=== PATIENT | female | born 1980 | race Hispanic/Latino ===

== ENCOUNTER 2017-06-12 19:27 | Emergency (ER) | payer MEDICARE ==
[~2017-06-12 19:27] MED LIST: GABA-529 PO; TOPI50TA24 PO; TYL3 PO
[2017-07-23] MEDS ORDERED: PANT40TA25 PO (11:02)
[2017-07-23] MEDS ORDERED: DULO20 PO (11:02)
[2017-07-23] MEDS ORDERED: METO10TA3 PO (11:02)
== END 2017-06-12 19:36 | disposition left against medical advice (07) ==
LOC: EDH 19:27
DX: Z53.21 Procedure and treatment not carried out due to patient leaving prior to being seen by health care provider (principal)
CPT/HCPCS: 96372

== ENCOUNTER 2017-06-16 15:05 | Emergency (ER) | payer MEDICARE ==
[2017-06-16 17:43] LABS: BASOPHILS % (AUTO) 0.5 % (0.0-5.0); HEMATOCRIT 40.1 % (36-48); LYMPHOCYTES % (AUTO) 24.5 % (21.0-51.0); MEAN CORPUSCULAR HEMOGLOBIN 30.7 pg (27.0-33.0); MEAN CORPUSCULAR HGB CONC 34.1 g/dL (32.0-36.0); MONOCYTES % (AUTO) 4.3 % (3.0-13.0); NEUTROPHILS % (AUTO) 69.7 % (40.0-77.0); PLATELET COUNT (AUTO) 182 K/uL (130-400); RED BLOOD CELL COUNT(AUTO) 4.45 MIL/uL (4.00-5.50); RED CELL DISTRIBUTION WIDTH 12.8 % (11.0-15.5); WHITE BLOOD COUNT (AUTO) 9.9 K/uL (4.8-10.8)
[2017-06-16 17:45] LABS: APPEARANCE,URINE Cloudy (CLEAR); BILIRUBIN,URINE Negative (NEGATIVE); COLOR,URINE Yellow (YELLOW); GLUCOSE, URINE (UA) Negative (NEGATIVE); KETONES,URINE Negative (NEGATIVE); LEUKOCYTE ESTERASE ,URINE Negative (NEGATIVE); NITRATE,URINE Negative (NEGATIVE); OCCULT BLOOD,URINE Negative (NEGATIVE); PH,URINE 7.5 (5.0-8.0); PROTEIN,URINE Negative (NEGATIVE)
[2017-06-16 17:52] LABS: AMORPHOUS SEDIMENT,UR Few /LPF (None Seen); BACTERIA,URINE Few /HPF (None Seen); RBC,URINE None Seen /HPF (0-1); WBC,URINE None Seen /HPF (0-1)
[2017-06-16 18:00] LABS: CREATININE 0.9 mg/dL (0.5-1.5); POTASSIUM 3.7 mmol/L (3.5-5.1)
[2017-06-16 18:04] LABS: ALBUMIN 3.4 g/dL (3.5-5.0); BILIRUBIN,DIRECT 0.1 mg/dL (0.0-0.3); BILIRUBIN,TOTAL 0.4 mg/dL (0.2-1.0); TOTAL PROTEIN, SERUM 6.4 g/dL (6.0-8.3)
[2017-06-16] MEDS ORDERED: HYOSCYAMINE SULFATE 0.125 MG TAB.SUBL SL ONE (18:35)
[2017-07-23] MEDS ORDERED: PANT40TA25 PO (11:02)
[2017-07-23] MEDS ORDERED: DULO20 PO (11:02)
[2017-07-23] MEDS ORDERED: METO10TA3 PO (11:02)
== END 2017-06-16 19:08 | disposition home or self-care (01) ==
LOC: EDH 15:05
DX: T16.1XXA Foreign body in right ear, initial encounter (principal); R10.9 Unspecified abdominal pain; R10.2 Pelvic and perineal pain; M19.90 Unspecified osteoarthritis, unspecified site; Z98.51 Tubal ligation status; Z90.49 Acquired absence of other specified parts of digestive tract; Z90.710 Acquired absence of both cervix and uterus; Z98.890 Other specified postprocedural states; Z88.5 Allergy status to narcotic agent; Z72.0 Tobacco use; X58.XXXA Exposure to other specified factors, initial encounter; Y93.89 Activity, other specified; Y92.89 Other specified places as the place of occurrence of the external cause; Y99.8 Other external cause status
CPT/HCPCS: 36415; 80048; 80076; 81001; 83690; 85025; 86677

== ENCOUNTER 2017-07-26 06:46 | Day surgery (SDC) | payer MEDICARE ==
[~2017-07-26] VITALS: Ht 157.5 cm; Wt 78.9 kg
[~2017-07-26 06:46] MED LIST changes: +DULO20 PO; +METO10TA3 PO; +PANT40TA25 PO; +SODIUM CHLORIDE 0.9% 1000ML 1,000 ML IV ONE; -TYL3 PO
[2017-07-26 06:56] VITALS: BP 117/60
[2017-07-26] MEDS ORDERED: ONDANSETRON HCL MDV 20ML 2 MG/ML VIAL ONE (07:30)
[2017-07-26] MEDS ORDERED: PROPOFOL 10 MG/ML 20ML VIAL IV ONE (08:14)
[2017-07-26 08:37] VITALS: BP 87/40
== END 2017-07-26 08:52 ==
LOC: DAH 06:46
PROVIDERS: ATTEND Internal Medicine Gastroenterology
DX: K31.84 Gastroparesis (principal); R63.4 Abnormal weight loss; G43.909 Migraine, unspecified, not intractable, without status migrainosus; M19.90 Unspecified osteoarthritis, unspecified site; M51.26 Other intervertebral disc displacement, lumbar region; Z68.33 Body mass index [BMI] 33.0-33.9, adult; Z79.899 Other long term (current) drug therapy; F17.200 Nicotine dependence, unspecified, uncomplicated; Z88.8 Allergy status to other drugs, medicaments and biological substances
CPT/HCPCS: 43235; A4606; J2704; J7030

== ENCOUNTER → 2017-08-06 | Outpatient (CLI) | payer MEDICARE ==
[~2017-08-06] MED LIST changes: -GABA-529 PO; -SODIUM CHLORIDE 0.9% 1000ML 1,000 ML IV ONE
== END | disposition home or self-care (01) ==
LOC: RAH 09:57
PROVIDERS: ATTEND Internal Medicine Gastroenterology
DX: R10.9 Unspecified abdominal pain (principal); R11.0 Nausea; R14.0 Abdominal distension (gaseous)
CPT/HCPCS: 78264; A9541

== ENCOUNTER → 2017-08-16 | Outpatient (CLI) | payer MEDICARE | END | disposition home or self-care (01) | LOC: RAH 12:26 | PROVIDERS: ATTEND Internal Medicine Gastroenterology | DX: R63.4 Abnormal weight loss (principal) | CPT/HCPCS: 71046 ==

== ENCOUNTER → 2017-08-19 | Outpatient (CLI) | payer MEDICARE | END | disposition home or self-care (01) | LOC: RAH 08:27 | PROVIDERS: ATTEND Internal Medicine Gastroenterology | DX: R63.4 Abnormal weight loss (principal) | CPT/HCPCS: 76700 ==

== ENCOUNTER 2017-09-09 17:10 | Emergency (ER) | payer MEDICARE ==
[2017-09-09 17:33] LABS: BILIRUBIN,URINE Small (NEGATIVE); COLOR,URINE Dark Yellow (YELLOW); GLUCOSE, URINE (UA) Negative (NEGATIVE); KETONES,URINE Negative (NEGATIVE); LEUKOCYTE ESTERASE ,URINE Negative (NEGATIVE); NITRATE,URINE Negative (NEGATIVE); OCCULT BLOOD,URINE Negative (NEGATIVE); PROTEIN,URINE Trace (NEGATIVE)
[2017-09-09 17:37] LABS: APPEARANCE,URINE SLIGHTLY CLOUDY (CLEAR)
[2017-09-09 17:40] LABS: RBC,URINE 0-1 /HPF (0-1); WBC,URINE 0-1 /HPF (0-1)
[2017-09-09 17:42] LABS: BACTERIA,URINE Moderate /HPF (None Seen)
[2017-09-09 17:43] LABS: MUCUS,URINE Few LPF (None Seen); SQUAMOUS EPITHELIAL CELL,UR Moderate /HPF (0-2)
[2017-09-09] MEDS ORDERED: SIMETHICONE 80 MG TAB.CHEW ONE (18:17)
[2017-09-09] MEDS ORDERED: HYOSCYAMINE SULFATE 0.125 MG TAB.SUBL SL ONE (18:18)
[2017-09-09 18:33] LABS: BASOPHILS % (AUTO) 0.4 % (0.0-5.0); EOSINOPHILS % (AUTO) 0.2 % (0.0-8.0); HEMATOCRIT 44.7 % (36-48); LYMPHOCYTES % (AUTO) 20.2 % (21.0-51.0); MEAN CORPUSCULAR HEMOGLOBIN 31.3 pg (27.0-33.0); MEAN CORPUSCULAR HGB CONC 34.6 g/dL (32.0-36.0); MEAN CORPUSCULAR VOLUME 90.5 fL (79-99); MONOCYTES % (AUTO) 5.1 % (3.0-13.0); NEUTROPHILS % (AUTO) 74.1 % (40.0-77.0); NUCLEATED RED BLOOD CELLS 0.1 % (0.0-0.19); PLATELET COUNT (AUTO) 213 K/uL (130-400); RED BLOOD CELL COUNT(AUTO) 4.94 MIL/uL (4.00-5.50); RED CELL DISTRIBUTION WIDTH 13.1 % (11.0-15.5); WHITE BLOOD COUNT (AUTO) 11.3 K/uL (4.8-10.8)
[2017-09-09 18:49] LABS: CREATININE 0.8 mg/dL (0.5-1.5); POTASSIUM 3.8 mmol/L (3.5-5.1)
[2017-09-09 18:54] LABS: ALBUMIN 4.1 g/dL (3.5-5.0); BILIRUBIN,TOTAL 0.7 mg/dL (0.2-1.0); TOTAL PROTEIN, SERUM 7.8 g/dL (6.0-8.3)
== END 2017-09-09 19:33 | disposition home or self-care (01) ==
LOC: EDH 17:10
DX: R10.30 Lower abdominal pain, unspecified (principal); R19.7 Diarrhea, unspecified; R68.83 Chills (without fever); Z88.5 Allergy status to narcotic agent; Z72.0 Tobacco use
CPT/HCPCS: 36415; 80053; 81001; 83690; 85025

== ENCOUNTER 2018-02-02 19:59 | Emergency (ER) | payer MEDICARE ==
[2018-02-02 20:46] LABS: APPEARANCE,URINE Clear (CLEAR); BILIRUBIN,URINE Negative (NEGATIVE); COLOR,URINE Yellow (YELLOW); GLUCOSE, URINE (UA) Negative (NEGATIVE); HCG,QUAL RESULT NEGATIVE (NEGATIVE); KETONES,URINE Negative (NEGATIVE); LEUKOCYTE ESTERASE ,URINE Negative (NEGATIVE); NITRATE,URINE Negative (NEGATIVE); OCCULT BLOOD,URINE Negative (NEGATIVE); PH,URINE 7.5 (5.0-8.0); PROTEIN,URINE Negative (NEGATIVE); UROBILINOGEN,URINE 0.2 mg/dL (0.2-1.0)
[2018-02-02] MEDS ORDERED: LIDOCAINE HCL 2% VISCOUS 15 ML UDCUP ONE (21:17)
[2018-02-02] MEDS ORDERED: MAG HYDROX/AL HYDROX/SIMETH ES 30 ML SUSP UDCUP ONE (21:17)
[2018-02-02 21:20] LABS: BASOPHILS % (AUTO) 0.2 % (0.0-5.0); EOSINOPHILS % (AUTO) 0.1 % (0.0-8.0); HEMATOCRIT 41.7 % (36-48); LYMPHOCYTES % (AUTO) 10.1 % (21.0-51.0); MEAN CORPUSCULAR HEMOGLOBIN 30.3 pg (27.0-33.0); MEAN CORPUSCULAR HGB CONC 33.3 g/dL (32.0-36.0); MEAN CORPUSCULAR VOLUME 90.9 fL (79-99); MONOCYTES % (AUTO) 2.8 % (3.0-13.0); NEUTROPHILS % (AUTO) 86.8 % (40.0-77.0); PLATELET COUNT (AUTO) 122 K/uL (130-400); RED BLOOD CELL COUNT(AUTO) 4.58 MIL/uL (4.00-5.50); WHITE BLOOD COUNT (AUTO) 8.4 K/uL (4.8-10.8)
[2018-02-02 21:32] LABS: POTASSIUM 3.7 mmol/L (3.5-5.1)
[2018-02-02 21:36] LABS: ALBUMIN 3.8 g/dL (3.5-5.0); BILIRUBIN,TOTAL 0.4 mg/dL (0.2-1.0)
[2018-02-02] MEDS ORDERED: 0.9% SODIUM CHLORIDE 1000 ML IV BAG IV ONE (21:51)
== END 2018-02-02 23:16 | disposition home or self-care (01) ==
LOC: EDH 19:59
DX: K52.9 Noninfective gastroenteritis and colitis, unspecified (principal); K29.00 Acute gastritis without bleeding; R51 Headache; M19.90 Unspecified osteoarthritis, unspecified site; Z88.6 Allergy status to analgesic agent; Z98.51 Tubal ligation status; Z90.710 Acquired absence of both cervix and uterus; Z90.49 Acquired absence of other specified parts of digestive tract; Z72.0 Tobacco use
CPT/HCPCS: 36415; 80053; 81003; 81025; 83690; 85025; 86677; 87804 ×2; 96360; 99284; J7030

== ENCOUNTER 2018-03-09 06:33 | Emergency (ER) | payer MEDICARE ==
[2018-03-09 07:01] LABS: BASOPHILS % (AUTO) 0.3 % (0.0-5.0); EOSINOPHILS % (AUTO) 0.6 % (0.0-8.0); HEMATOCRIT 43.7 % (36-48); LYMPHOCYTES % (AUTO) 3.7 % (21.0-51.0); MEAN CORPUSCULAR HEMOGLOBIN 31.3 pg (27.0-33.0); MEAN CORPUSCULAR HGB CONC 33.9 g/dL (32.0-36.0); MEAN CORPUSCULAR VOLUME 92.4 fL (79-99); MONOCYTES % (AUTO) 2.1 % (3.0-13.0); NEUTROPHILS % (AUTO) 93.3 % (40.0-77.0); PLATELET COUNT (AUTO) 183 K/uL (130-400); RED BLOOD CELL COUNT(AUTO) 4.73 MIL/uL (4.00-5.50); RED CELL DISTRIBUTION WIDTH 13.5 % (11.0-15.5); WHITE BLOOD COUNT (AUTO) 12.6 K/uL (4.8-10.8)
[2018-03-09] MEDS ORDERED: ONDANSETRON HCL 4 MG/2 ML VIAL ONE (07:03)
[2018-03-09] MEDS ORDERED: SODIUM CHLORIDE 0.9% 1000ML 1,000 ML IV ONE (07:03)
[2018-03-09 07:10] LABS: CREATININE 0.8 mg/dL (0.5-1.5); POTASSIUM 3.9 mmol/L (3.5-5.1)
[2018-03-09 07:14] LABS: APPEARANCE,URINE CLEAR (CLEAR); BILIRUBIN,URINE NEGATIVE (NEGATIVE); COLOR,URINE YELLOW (YELLOW); GLUCOSE, URINE (UA) NEGATIVE (NEGATIVE); KETONES,URINE NEGATIVE (NEGATIVE); LEUKOCYTE ESTERASE ,URINE NEGATIVE (NEGATIVE); NITRATE,URINE NEGATIVE (NEGATIVE); OCCULT BLOOD,URINE NEGATIVE (NEGATIVE); PH,URINE 6.5 (5.0-8.0); PROTEIN,URINE NEGATIVE (NEGATIVE); UROBILINOGEN,URINE 0.2 mg/dL (0.2-1.0)
[2018-03-09 07:15] LABS: ALBUMIN 3.5 g/dL (3.5-5.0); BILIRUBIN,DIRECT 0.1 mg/dL (0.0-0.3); BILIRUBIN,TOTAL 0.5 mg/dL (0.2-1.0); TOTAL PROTEIN, SERUM 7.3 g/dL (6.0-8.3)
[2018-03-09 07:19] LABS: HCG,QUAL RESULT NEGATIVE (NEGATIVE)
[2018-03-09 07:22] LABS: AMPHET/METH SCREEN,URINE NEGATIVE (NEGATIVE); BARBITURATE SCREEN, URINE NEGATIVE (NEGATIVE); BENZODIAZEPINES SCREEN,URINE NEGATIVE (NEGATIVE); CANNABINOID SCREEN,URINE POSITIVE (NEGATIVE); COCAINE SCREEN,URINE NEGATIVE (NEGATIVE); OPIATE SCREEN,URINE NEGATIVE (NEGATIVE); PHENCYCLIDINE SCREEN,URINE NEGATIVE (NEGATIVE)
[2018-03-09] MEDS ORDERED: MAG HYDROX/AL HYDROX/SIMETH ES 30 ML SUSP UDCUP ONE (07:34)
[2018-03-09] MEDS ORDERED: FAMOTIDINE 20MG TAB 20 MG TAB ONE (07:34)
[2018-03-09] MEDS ORDERED: LIDOCAINE HCL 2% VISCOUS 15 ML UDCUP ONE (07:34)
== END 2018-03-09 12:30 | disposition home or self-care (01) ==
LOC: EDH 06:33
DX: K52.9 Noninfective gastroenteritis and colitis, unspecified (principal); R10.13 Epigastric pain; M19.90 Unspecified osteoarthritis, unspecified site; Z88.6 Allergy status to analgesic agent; Z90.49 Acquired absence of other specified parts of digestive tract; Z98.51 Tubal ligation status; Z90.710 Acquired absence of both cervix and uterus; Z98.890 Other specified postprocedural states
CPT/HCPCS: 36415; 80048; 80076; 80305; 81003; 81025; 83690; 85025; 96361 ×2; 96374; 99285; J2405; J7030

== ENCOUNTER 2020-04-22 23:53 | Emergency (ER) | payer MEDICARE ==
[~2020-04-22 23:53] MED LIST changes: -PANT40TA25 PO; +PANT40TA54 PO
[2020-04-22] MEDS ORDERED: 0.9%NACL 1000ML 1,000 ML IV ONE (23:54)
[2020-04-23] MEDS ORDERED: DiphenhydrAMINE HCL 50 MG/ML VIAL ONE (01:05)
[2020-04-23] MEDS ORDERED: METOCLOPRAMIDE 10 MG/2 ML VIAL ONE (01:06)
[2020-04-23] MEDS ORDERED: KETOROLAC 30MG VIAL (30MG/ML) ONE (01:06)
== END 2020-04-23 02:44 | disposition home or self-care (01) ==
LOC: EDH 23:53
DX: G43.009 Migraine without aura, not intractable, without status migrainosus (principal); F32.9 Major depressive disorder, single episode, unspecified; M19.90 Unspecified osteoarthritis, unspecified site; Z88.6 Allergy status to analgesic agent
CPT/HCPCS: 96361; 96374; 96375; 99284; J1200; J1885; J2765; J7030

== ENCOUNTER 2021-08-14 16:27 | Emergency (ER) | payer MEDICARE ==
[~2021-08-14] VITALS: Ht 157.5 cm; Wt 87.1 kg
[2021-08-14] MEDS ORDERED: 0.9%NACL 1000ML 1,000 ML IV ONE (17:00)
[2021-08-14 17:09] LABS: BASOPHILS % (AUTO) 0.3 % (0.0-5.0); EOSINOPHILS % (AUTO) 0.9 % (0.0-8.0); HEMATOCRIT 44.8 % (36-48); LYMPHOCYTES % (AUTO) 16.7 % (21.0-51.0); MEAN CORPUSCULAR HEMOGLOBIN 29.1 pg (27.0-33.0); MEAN CORPUSCULAR HGB CONC 32.1 g/dL (32.0-36.0); MEAN CORPUSCULAR VOLUME 90.5 fL (79-99); MONOCYTES % (AUTO) 6.9 % (3.0-13.0); NEUTROPHILS % (AUTO) 74.8 % (40.0-77.0); PLATELET COUNT (AUTO) 181 K/uL (130-400); RED BLOOD CELL COUNT(AUTO) 4.95 MIL/uL (4.00-5.50); RED CELL DISTRIBUTION WIDTH 12.5 % (11.0-15.5); WHITE BLOOD COUNT (AUTO) 9.3 K/uL (4.8-10.8)
[2021-08-14 17:13] LABS: APPEARANCE,URINE CLEAR (CLEAR); BILIRUBIN,URINE NEGATIVE (NEGATIVE); COLOR,URINE YELLOW (YELLOW); GLUCOSE, URINE (UA) NEGATIVE (NEGATIVE); KETONES,URINE NEGATIVE (NEGATIVE); LEUKOCYTE ESTERASE ,URINE NEGATIVE (NEGATIVE); NITRATE,URINE POSITIVE (NEGATIVE); OCCULT BLOOD,URINE NEGATIVE (NEGATIVE); PROTEIN,URINE NEGATIVE (NEGATIVE); UROBILINOGEN,URINE 0.2 mg/dL (0.2-1.0)
[2021-08-14 17:18] LABS: CREATININE 0.6 mg/dL (0.5-1.5)
[2021-08-14 17:29] LABS: ALBUMIN 3.6 g/dL (3.5-5.0); BILIRUBIN,TOTAL 0.4 mg/dL (0.2-1.0); TOTAL PROTEIN, SERUM 7.1 g/dL (6.0-8.3)
[2021-08-14] MEDS ORDERED: CEFTRIAXONE 1G VIAL IVP ONE (17:30)
[2021-08-14] MEDS ORDERED: DiphenhydrAMINE HCL 50 MG/ML VIAL IV ONE (17:30)
[2021-08-14] MEDS ORDERED: PROCHLORPERAZINE 10MG/2ML INJ IV ONE (17:30)
[2021-08-14 17:39] LABS: BACTERIA,URINE Few /HPF (None Seen); RBC,URINE 0-1 /HPF (0-1); SQUAMOUS EPITHELIAL CELL,UR Few /HPF (0-2); WBC,URINE 0-1 /HPF (0-1)
[2021-08-14] MEDS ORDERED: CEPH500B PO (18:44)
[2021-08-14 19:06] VITALS: BP 131/80
== END 2021-08-14 19:08 | disposition home or self-care (01) ==
LOC: EDH 16:27
DX: N39.0 Urinary tract infection, site not specified (principal); R51.9 Headache, unspecified; E86.0 Dehydration; M19.90 Unspecified osteoarthritis, unspecified site; Z88.5 Allergy status to narcotic agent; Z90.49 Acquired absence of other specified parts of digestive tract
CPT/HCPCS: 36415; 80053; 81001; 84702; 85025; 87088; 96361 ×2; 96374; 96375; 99284; J0696; J0780; J1200; J7030

== ENCOUNTER 2021-11-18 09:21 | Emergency (ER) | payer OTHER, MEDICARE ==
[~2021-11-18] VITALS: Ht 157.5 cm; Wt 84.4 kg
[~2021-11-18 09:21] MED LIST changes: +CEPH500B PO
[2021-11-18 09:51] LABS: BASOPHILS % (AUTO) 0.3 % (0.0-5.0); EOSINOPHILS % (AUTO) 0.8 % (0.0-8.0); HEMATOCRIT 42.9 % (36-48); LYMPHOCYTES % (AUTO) 24.3 % (21.0-51.0); MEAN CORPUSCULAR HEMOGLOBIN 30.3 pg (27.0-33.0); MEAN CORPUSCULAR HGB CONC 33.3 g/dL (32.0-36.0); MEAN CORPUSCULAR VOLUME 90.9 fL (79-99); NEUTROPHILS % (AUTO) 70.2 % (40.0-77.0); PLATELET COUNT (AUTO) 156 K/uL (130-400); RED BLOOD CELL COUNT(AUTO) 4.72 MIL/uL (4.00-5.50); WHITE BLOOD COUNT (AUTO) 7.2 K/uL (4.8-10.8)
[2021-11-18 10:36] LABS: APPEARANCE,URINE Cloudy (CLEAR); BILIRUBIN,URINE Negative (NEGATIVE); COLOR,URINE Yellow (YELLOW); GLUCOSE, URINE (UA) Negative (NEGATIVE); KETONES,URINE Negative (NEGATIVE); LEUKOCYTE ESTERASE ,URINE Negative (NEGATIVE); NITRATE,URINE Negative (NEGATIVE); OCCULT BLOOD,URINE Negative (NEGATIVE); PH,URINE 5.5 (5.0-8.0); PROTEIN,URINE Negative (NEGATIVE); UROBILINOGEN,URINE 0.2 mg/dL (0.2-1.0)
[2021-11-18 10:57] LABS: ALBUMIN 3.3 g/dL (3.5-5.0); CREATININE 0.8 mg/dL (0.5-1.5); TOTAL PROTEIN, SERUM 6.6 g/dL (6.0-8.3)
[2021-11-18 11:14] LABS: POTASSIUM 3.9 mmol/L (3.5-5.1)
[2021-11-18] MEDS ORDERED: LIDOCAINE HCL 2% VISCOUS 15 ML UDCUP PO ONE (11:30)
[2021-11-18] MEDS ORDERED: MAG/ALUM/SIMETH 30 ML UDCUP PO ONE (11:30)
[2021-11-18] MEDS ORDERED: DICYCLOMINE HCL 10 MG/5 ML ML PO ONE (11:30)
[2021-11-18] MEDS ORDERED: PANT40TA55 PO (12:25)
[2021-11-18 12:34] VITALS: BP 126/69
== END 2021-11-18 12:30 | disposition home or self-care (01) ==
LOC: EDH 09:21
DX: K29.70 Gastritis, unspecified, without bleeding (principal); Z88.5 Allergy status to narcotic agent
CPT/HCPCS: 36415; 80053; 81003; 81025; 85025

== ENCOUNTER 2021-12-18 07:07 | Day surgery (SDC) | payer OTHER, MEDICARE ==
[2021-12-16 09:37] LABS: BASOPHILS % (AUTO) 0.4 % (0.0-5.0); EOSINOPHILS % (AUTO) 1.8 % (0.0-8.0); LYMPHOCYTES % (AUTO) 26.6 % (21.0-51.0); MEAN CORPUSCULAR HGB CONC 33.3 g/dL (32.0-36.0); MEAN CORPUSCULAR VOLUME 93.3 fL (79-99); MONOCYTES % (AUTO) 6.2 % (3.0-13.0); NEUTROPHILS % (AUTO) 64.2 % (40.0-77.0); PLATELET COUNT (AUTO) 172 K/uL (130-400); RED BLOOD CELL COUNT(AUTO) 4.93 MIL/uL (4.00-5.50); RED CELL DISTRIBUTION WIDTH 12.8 % (11.0-15.5); WHITE BLOOD COUNT (AUTO) 7.9 K/uL (4.8-10.8)
[2021-12-16 09:46] LABS: CREATININE 0.8 mg/dL (0.5-1.5); POTASSIUM 4.5 mmol/L (3.5-5.1)
[2021-12-17 11:49] VITALS: BP 139/86
[2021-12-18] VITALS (18 sets, daily range): BP systolic 101–149; BP diastolic 60–87
[~2021-12-18] VITALS: Ht 157.5 cm; Wt 84.2 kg
[~2021-12-18 07:07] MED LIST changes: +CEFAZOLIN SODIUM 1 GM VIAL IVP SCH; -CEPH500B PO; -DULO20 PO; -METO10TA3 PO; -PANT40TA54 PO; -TOPI50TA24 PO
[2021-12-18] MEDS ORDERED: LACTATED RINGERS 1000ML 1,000 ML IV ONE (07:12)
[2021-12-18] MEDS ORDERED: ONDANSETRON 4MG INJ ONE (09:35)
[2021-12-18] MEDS ORDERED: MIDAZOLAM HCL 1 MG/ML 2ML VIAL ONE (09:35)
[2021-12-18] MEDS ORDERED: PROPOFOL 10 MG/ML 20ML VIAL IV ONE (09:49)
[2021-12-18] MEDS ORDERED: FENTANYL CITRATE PF 50 MCG/1 ML 5ML AMP IV ONE (09:49)
[2021-12-18] MEDS ORDERED: FENTANYL CITRATE PF 50 MCG/1 ML 2ML VIAL ONE (09:50)
[2021-12-18] MEDS ORDERED: CEFAZOLIN SODIUM 2 GM VIAL IV ONE (09:50)
[2021-12-18] MEDS ORDERED: DEXAMETHASONE SOD PHOSPHATE 10MG/ML 1ML VIAL ONE (10:18)
[2021-12-18] MEDS ORDERED: MEPERIDINE-PF 25 MG/ML SYG ONE ×3 (10:21→11:32)
[2021-12-18] MEDS ORDERED: ACET-2079 PO (11:12)
[2021-12-18] MEDS ORDERED: CEPH500B PO (11:12)
[2021-12-18] MEDS ORDERED: KETOROLAC 30MG VIAL (30MG/ML) ONE (11:20)
== END 2021-12-18 13:15 | disposition home or self-care (01) ==
LOC: DAH 07:07
PROVIDERS: ATTEND Orthopaedic Surgery
DX: M22.2X2 Patellofemoral disorders, left knee (principal); M23.8X2 Other internal derangements of left knee; M94.262 Chondromalacia, left knee; G89.29 Other chronic pain; M25.562 Pain in left knee; K21.9 Gastro-esophageal reflux disease without esophagitis; F17.210 Nicotine dependence, cigarettes, uncomplicated; Z90.710 Acquired absence of both cervix and uterus; Z98.891 History of uterine scar from previous surgery; Z90.49 Acquired absence of other specified parts of digestive tract; Z98.890 Other specified postprocedural states; Z82.49 Family history of ischemic heart disease and other diseases of the circulatory system; Z72.89 Other problems related to lifestyle; Z79.01 Long term (current) use of anticoagulants
CPT/HCPCS: 80048; 85025; 87426; 36415; 29873; A4663; A4649 ×2; J0690 ×2; J7120; J3010; J1100; J2250; J2704; J2405; J1885; J2175 ×3; A6223; A5120; A4215; A4223; A4222; A4221; A6450

== ENCOUNTER 2022-05-12 05:32 | Observation (INO) | payer OTHER, MEDICARE ==
[2022-05-08 09:20] LABS: APPEARANCE,URINE CLEAR (CLEAR); BILIRUBIN,URINE NEGATIVE (NEGATIVE); COLOR,URINE YELLOW (YELLOW); GLUCOSE, URINE (UA) NEGATIVE (NEGATIVE); KETONES,URINE NEGATIVE (NEGATIVE); LEUKOCYTE ESTERASE ,URINE NEGATIVE Leu/uL (NEGATIVE); NITRATE,URINE NEGATIVE (NEGATIVE); OCCULT BLOOD,URINE NEGATIVE (NEGATIVE); PROTEIN,URINE NEGATIVE (NEGATIVE)
[2022-05-08 09:20] LABS: BASOPHILS % (AUTO) 0.3 % (0.0-5.0); HEMATOCRIT 42.5 % (36-48); LYMPHOCYTES % (AUTO) 25.3 % (21.0-51.0); MEAN CORPUSCULAR HEMOGLOBIN 30.6 pg (27.0-33.0); MEAN CORPUSCULAR HGB CONC 33.2 g/dL (32.0-36.0); MEAN CORPUSCULAR VOLUME 92.2 fL (79-99); MONOCYTES % (AUTO) 5.3 % (3.0-13.0); NEUTROPHILS % (AUTO) 67.7 % (40.0-77.0); PLATELET COUNT (AUTO) 177 K/uL (130-400); RED BLOOD CELL COUNT(AUTO) 4.61 MIL/uL (4.00-5.50); RED CELL DISTRIBUTION WIDTH 12.8 % (11.0-15.5); WHITE BLOOD COUNT (AUTO) 6.8 K/uL (4.8-10.8)
[2022-05-11 10:10] VITALS: BP 104/53
[2022-05-12] VITALS (25 sets, daily range): BP systolic 97–140; BP diastolic 56–80
[~2022-05-12] VITALS: Ht 157.5 cm; Wt 78.6 kg
[2022-05-12] MEDS ORDERED: LACTATED RINGERS 1000ML 1,000 ML IV ONE (05:59)
[2022-05-12] MEDS ORDERED: CEFAZOLIN SODIUM 2 GM VIAL ONE (06:00)
[2022-05-12] MEDS ORDERED: ESTROGENS,CONJUGATED 0.625 MG/GM 42.5 GM VAG CRM VG ONE (06:06)
[2022-05-12] MEDS ORDERED: FAMOTIDINE 20MG VIAL IV ONE (06:46)
[2022-05-12] MEDS ORDERED: HYDROMORPHONE 1 MG INJ ONE (06:47)
[2022-05-12] MEDS ORDERED: MIDAZOLAM HCL 1 MG/ML 2ML VIAL ONE (06:50)
[2022-05-12] MEDS ORDERED: PROPOFOL 10 MG/ML 20ML VIAL IV ONE (06:50)
[2022-05-12] MEDS ORDERED: LIDOCAINE PF 100MG/5ML (2%) SYRINGE 5ML ONE (06:50)
[2022-05-12] MEDS ORDERED: SUCCINYLCHOLINE 200MG/10ML SYR ONE (06:50)
[2022-05-12] MEDS ORDERED: GLYCOPYRROLATE 1 MG/5 ML SYRINGE ONE (06:50)
[2022-05-12] MEDS ORDERED: FENTANYL CITRATE PF 50 MCG/1 ML 2ML VIAL ONE ×2 (06:51→08:40)
[2022-05-12] MEDS ORDERED: ROCURONIUM 10MG/1ML SYR 10 MG/ML ML ONE (06:51)
[2022-05-12] MEDS ORDERED: CEFAZOLIN SODIUM 2 GM VIAL IVPB ONE (06:52)
[2022-05-12] MEDS ORDERED: ONDANSETRON 4MG INJ ONE (07:15)
[2022-05-12] MEDS ORDERED: CEFAZOLIN SODIUM 2 GM VIAL IVPB PRN (08:00)
[2022-05-12] MEDS ORDERED: NEOSTIGMINE 5MG/5ML SYR IV ONE (08:10)
[2022-05-12] MEDS ORDERED: MEPERIDINE-PF 25 MG/ML SYG ONE (08:40)
[2022-05-12] MEDS: PROMETHAZINE HCL 25 MG/ML 1ML AMPULE IM PRN ×3 (10:19→22:47)
[2022-05-12] MEDS: MEPERIDINE-PF 75 MG/ML SYG IM PRN ×3 (10:20→22:48)
[2022-05-12] MEDS ORDERED: BISACODYL 10 MG SUPP.RECT RC PRN (10:30)
[2022-05-12] MEDS ORDERED: ACETAMINOPHEN WITH CODEINE 1 TAB TAB PO PRN (10:30)
[2022-05-12] MEDS ORDERED: PROMETHAZINE HCL 25 MG/ML 1ML AMPULE IM PRN (10:30)
[2022-05-12] MEDS ORDERED: IBUPROFEN 600 MG TABLET PO PRN (10:30)
[2022-05-12] MEDS ORDERED: ONDANSETRON 4MG INJ IVP PRN (11:00)
[2022-05-12] MEDS: DEXTROSE 5 %-0.45 % NACL 1,000 ML IV PRN ×2 (15:25→22:49)
[2022-05-12] MEDS: DOCUSATE SODIUM 100 MG CAP PO PRN (22:28)
[2022-05-12] MEDS: SIMETHICONE 80 MG TAB.CHEW PO PRN (22:28)
[2022-05-12] MEDS: NITROFURANTOIN MONOHYD/M-CRYST 100 MG CAPSULE PO SCH (22:28)
[2022-05-13 04:12] VITALS: BP 125/70
[2022-05-13] MEDS: MEPERIDINE-PF 75 MG/ML SYG IM PRN (04:23)
[2022-05-13] MEDS: PROMETHAZINE HCL 25 MG/ML 1ML AMPULE IM PRN (04:24)
[2022-05-13] MEDS ORDERED: HYDROCODONE/ACETAMINOPHEN 5/325 MG TAB PO PRN (05:30)
[2022-05-13 06:45] LABS: BASOPHILS % (AUTO) 0.3 % (0.0-5.0); EOSINOPHILS % (AUTO) 0.5 % (0.0-8.0); HEMATOCRIT 37.6 % (36-48); LYMPHOCYTES % (AUTO) 25.6 % (21.0-51.0); MEAN CORPUSCULAR HEMOGLOBIN 30.5 pg (27.0-33.0); MEAN CORPUSCULAR VOLUME 92.6 fL (79-99); MONOCYTES % (AUTO) 5.9 % (3.0-13.0); NEUTROPHILS % (AUTO) 67.1 % (40.0-77.0); PLATELET COUNT (AUTO) 145 K/uL (130-400); RED BLOOD CELL COUNT(AUTO) 4.06 MIL/uL (4.00-5.50); RED CELL DISTRIBUTION WIDTH 13.1 % (11.0-15.5); WHITE BLOOD COUNT (AUTO) 7.9 K/uL (4.8-10.8)
[2022-05-13 07:18] VITALS: BP 113/58
[2022-05-13] MEDS: NITROFURANTOIN MONOHYD/M-CRYST 100 MG CAPSULE PO SCH ×2 (08:53→20:45)
[2022-05-13] MEDS: IBUPROFEN 800 MG TAB PO PRN ×2 (08:53→17:19)
[2022-05-13] MEDS: SIMETHICONE 80 MG TAB.CHEW PO PRN ×2 (08:53→20:45)
[2022-05-13] MEDS: DOCUSATE SODIUM 100 MG CAP PO PRN ×2 (08:53→20:45)
[2022-05-13] MEDS: ACETAMINOPHEN WITH CODEINE 1 TAB TAB PO PRN ×2 (11:27→19:59)
[2022-05-13 11:50] VITALS: BP 110/67
[2022-05-13 16:16] VITALS: BP 105/63
[2022-05-13 19:20] VITALS: BP 94/54
[2022-05-13 22:35] VITALS: BP 101/60
[2022-05-14 02:38] VITALS: BP 94/57
[2022-05-14 07:35] VITALS: BP 112/79
[2022-05-14] MEDS: DOCUSATE SODIUM 100 MG CAP PO PRN (09:14)
[2022-05-14] MEDS: NITROFURANTOIN MONOHYD/M-CRYST 100 MG CAPSULE PO SCH (09:14)
[2022-05-14] MEDS: IBUPROFEN 800 MG TAB PO PRN (09:15)
[2022-05-14] MEDS ORDERED: DOCU-116 PO (11:07)
[2022-05-14] MEDS ORDERED: ACET-2079 PO (11:08)
[2022-05-14] MEDS ORDERED: NITR100C4 PO (11:09)
[2022-05-14 11:49] VITALS: BP 119/61
== END 2022-05-14 12:35 | disposition home or self-care (01) ==
LOC: DAH 05:32 → WSH 05:33
PROVIDERS: ADMIT Obstetrics & Gynecology; ATTEND Obstetrics & Gynecology
DX: N81.10 Cystocele, unspecified (principal); Z20.822 Contact with and (suspected) exposure to COVID-19; N81.6 Rectocele; N39.3 Stress incontinence (female) (male); K21.9 Gastro-esophageal reflux disease without esophagitis; M19.90 Unspecified osteoarthritis, unspecified site; E03.9 Hypothyroidism, unspecified; Z79.899 Other long term (current) drug therapy; Z98.890 Other specified postprocedural states; Z98.51 Tubal ligation status; Z90.710 Acquired absence of both cervix and uterus; Z98.891 History of uterine scar from previous surgery
CPT/HCPCS: 84703; 85025 ×2; 86850 ×2; 86900 ×2; 86901 ×2; 87426; 81003; 36415 ×3; 96372 ×2; 57260; 57288; A6260; G0378 ×55; G0379; A4663; A6266; A4606; J7120; J3490 ×2; J3010; J1170; J0330; J2710; J2550 ×4; J2001; J2250; J2704; J2405; J2175 ×5; J0690 ×2; A4351; C1771; A4649; A4215; A4223; A4222; A4221; A4600; A4510

== ENCOUNTER 2023-02-26 13:36 | Emergency (ER) | payer OTHER, MEDICARE ==
[~2023-02-26] VITALS: Ht 154.9 cm; Wt 79.8 kg
[~2023-02-26 13:36] MED LIST changes: +ACET-2079 PO; -CEFAZOLIN SODIUM 1 GM VIAL IVP SCH; +DOCU-116 PO; +NITR100C4 PO
[2023-02-26 14:08] VITALS: BP 116/78; PULSE 68; RESP 18; O2SAT 99
[2023-02-26 14:24] LABS: BASOPHILS # (AUTO) 0.02 K/uL (0.00-0.20); BASOPHILS % (AUTO) 0.2 % (0.0-5.0); EOSINOPHILS # (AUTO) 0.04 K/uL (0.00-0.70); EOSINOPHILS % (AUTO) 0.5 % (0.0-8.0); HEMATOCRIT 43.3 % (36-48); IMMATURE GRANULOCYTE ABSOLUTE 0.04 K/uL (0-1); LYMPHOCYTES # (AUTO) 1.4 K/uL (1.0-4.8); LYMPHOCYTES % (AUTO) 16.2 % (21.0-51.0); MEAN CORPUSCULAR HEMOGLOBIN 31.7 pg (27.0-33.0); MEAN CORPUSCULAR HGB CONC 33.5 g/dL (32.0-36.0); MEAN CORPUSCULAR VOLUME 94.7 fL (79-99); MONOCYTES # (AUTO) 0.5 K/uL (0.1-1.0); MONOCYTES % (AUTO) 5.5 % (3.0-13.0); NEUTROPHILS # (AUTO) 6.4 K/uL (1.8-7.7); NEUTROPHILS % (AUTO) 77.1 % (40.0-77.0); PLATELET COUNT (AUTO) 162 K/uL (130-400); RED BLOOD CELL COUNT(AUTO) 4.57 MIL/uL (4.00-5.50); WHITE BLOOD COUNT (AUTO) 8.3 K/uL (4.8-10.8)
[2023-02-26 14:34] LABS: CREATININE 0.8 mg/dL (0.5-1.5); POTASSIUM 3.8 mmol/L (3.5-5.1)
[2023-02-26 14:40] LABS: ALBUMIN 3.6 g/dL (3.5-5.0); BILIRUBIN,TOTAL 0.4 mg/dL (0.2-1.0); TOTAL PROTEIN, SERUM 6.9 g/dL (6.0-8.3)
[2023-02-26 14:50] LABS: B-TYPE NATRIURETIC PEPTIDE 7 pg/mL (0-100)
[2023-02-26 15:25] LABS: BILIRUBIN,URINE NEGATIVE (NEGATIVE); GLUCOSE, URINE (UA) NEGATIVE (NEGATIVE); KETONES,URINE NEGATIVE (NEGATIVE); LEUKOCYTE ESTERASE ,URINE 25 Leu/uL (NEGATIVE); NITRATE,URINE NEGATIVE (NEGATIVE); OCCULT BLOOD,URINE NEGATIVE (NEGATIVE); PH,URINE 6.5 (5.0-8.0); PROTEIN,URINE NEGATIVE (NEGATIVE); UROBILINOGEN,URINE 0.2 mg/dL (0.2-1.0)
[2023-02-26 15:27] LABS: ADD UA MICROSCOPIC YES; APPEARANCE,URINE HAZY (CLEAR); COLOR,URINE YELLOW (YELLOW)
[2023-02-26 15:30] LABS: BACTERIA,URINE FEW /HPF (None Seen); MUCUS,URINE RARE LPF (None Seen); RBC,URINE 0-1 /HPF (0-1); SQUAMOUS EPITHELIAL CELL,UR MOD /HPF (0-2)
[2023-02-26 15:32] LABS: HCG,QUALITATIVE URINE NEGATIVE (NEGATIVE)
[2023-02-26] MEDS ORDERED: CEFTRIAXONE 1G VIAL IVPB ONE (16:00)
[2023-02-26] MEDS ORDERED: 0.9%NACL 1000ML 1,000 ML IV ONE (16:00)
[2023-02-26] MEDS ORDERED: IBUP-2070 PO (16:09)
[2023-02-26] MEDS ORDERED: CEPH500B PO (16:09)
== END 2023-02-26 16:22 | disposition home or self-care (01) ==
LOC: EDH 13:36
DX: R07.89 Other chest pain (principal); N39.0 Urinary tract infection, site not specified; N64.4 Mastodynia; Z79.899 Other long term (current) drug therapy; Z90.49 Acquired absence of other specified parts of digestive tract; Z90.710 Acquired absence of both cervix and uterus; Z98.890 Other specified postprocedural states; Z88.5 Allergy status to narcotic agent
CPT/HCPCS: 99285; 96365; 71045; 82550; 83735; 84484; 80053; 83880; 85025; 81001; 81025; 36415; 93005; J0696

== ENCOUNTER 2024-01-25 02:50 | Emergency (ER) | payer OTHER, MEDICARE ==
[~2024-01-25] VITALS: Ht 154.9 cm; Wt 81.6 kg
[~2024-01-25 02:50] MED LIST changes: +CEPH500B PO; +IBUP-2070 PO
[2024-01-25 03:29] LABS: APPEARANCE,URINE CLOUDY (CLEAR); BILIRUBIN,URINE NEGATIVE (NEGATIVE); COLOR,URINE DARK-YELLOW (YELLOW); GLUCOSE, URINE (UA) NEGATIVE (NEGATIVE); KETONES,URINE NEGATIVE (NEGATIVE); LEUKOCYTE ESTERASE ,URINE 250 Leu/uL (NEGATIVE); NITRATE,URINE NEGATIVE (NEGATIVE); OCCULT BLOOD,URINE SMALL (NEGATIVE); PROTEIN,URINE 20 mg/dL (NEGATIVE)
[2024-01-25 03:31] LABS: HCG,QUALITATIVE URINE NEGATIVE (NEGATIVE)
[2024-01-25 03:32] LABS: BACTERIA,URINE RARE /HPF (None Seen); CALCIUM OXALATE CRYSTALS,UR MANY /LPF (None Seen); MUCUS,URINE RARE LPF (None Seen); SQUAMOUS EPITHELIAL CELL,UR FEW /HPF (0-2)
[2024-01-25] MEDS ORDERED: CEPH500B PO (03:46)
[2024-01-25 04:50] VITALS: BP 121/72; PULSE 65; RESP 18; TEMP 97.4; O2SAT 98
[2024-01-25] MEDS: PHENAZOpyridine HCL 200 MG TAB 200 MG TABLET PO ONE (04:51)
[2024-01-25] MEDS: cefTRIAXone 1G VIAL IM ONE (04:51)
[2024-01-25] MEDS: acetaMINOPHEN 500 MG TABLET PO ONE (04:51)
== END 2024-01-25 05:17 | disposition home or self-care (01) ==
LOC: EDH 02:50
DX: N39.0 Urinary tract infection, site not specified (principal); Z79.899 Other long term (current) drug therapy; Z88.5 Allergy status to narcotic agent; Z90.49 Acquired absence of other specified parts of digestive tract; Z90.710 Acquired absence of both cervix and uterus; Z98.890 Other specified postprocedural states
CPT/HCPCS: 99283; 87086; 81001; 81025; 96372; J0696

== ENCOUNTER 2025-02-15 19:08 | Emergency (ER) | payer OTHER, MEDICAID ==
[~2025-02-15] VITALS: Ht 154.9 cm; Wt 80.7 kg
[~2025-02-15 19:08] MED LIST changes: +IBUP-1492 PO; -IBUP-2070 PO
--- NOTE | 2025-02-15 20:00 | ERN ---
ED Note History of Present Illness Stated Complaint: C/O LOWER BACK PAIN, PAIN TO LEGS Chief Complaint: Back Pain-No Injury Time Seen by MD: 19:12 Time Seen by Midlevel: 19:12 Dictation: The patient is a 44-year-old female with a history of herniated disc and stimulators, cholecystectomy, hysterectomy who presents to the emergency department with complaints of lower back pain onset 3:00 p.m.. Patient denies any trauma but reports she thinks she might have turn wrong. Reports pain radiates down her left buttocks. Patient denies any urinary or fecal incontinence. Denies any numbness to lower extremities. Allergies: Coded Allergies: morphine (Unverified Allergy, Unknown, 12/18/15) Home Meds Active Scripts Meloxicam (Meloxicam) 15 Mg Tablet, 1 TAB PO DAILY for 30 Days, #30 TAB 0 Refills Prov:JORGE BABCOCK [facility] 02/15/25 Lidocaine (Lidocaine Pain Relief) 4 % Adh..patch, 1 PATCH TP DAILY for 10 Days, #10 PATCH 0 Refills Prov:JORGE BABCOCK [facility] 02/15/25 Cyclobenzaprine HCl (Flexeril) 10 Mg Tab, 10 MG PO TID for muscle sstiffness, #14 TAB 0 Refills Prov:JORGE BABCOCK [facility] 02/15/25 Cephalexin Monohydrate (Keflex) 500 Mg Cap, 500 MG PO BID for 7 Days, #14 CAP Prov:VALENTINA ESPOSITO MD 01/25/24 Cephalexin Monohydrate (Keflex) 500 Mg Cap, 500 MG PO QID for 7 Days, #28 CAP Prov:ISABELL CRUZ V [facility] 02/26/23 Ibuprofen (Ibuprofen) 600 Mg Tablet, 600 MG PO Q6H PRN for PAIN, #30 TAB Prov:ISABELL CRUZ V [facility] 02/26/23 Reported Medications Nitrofurantoin Monohyd/M-Cryst (Macrobid 100 mg Capsule) 100 Mg Capsule, 100 MG PO BID, #20 CAP 05/14/22 Acetaminophen with Codeine (Acetaminophen-Cod #3 Tablet) 1 Each Tablet, 1 EACH PO Q4HPRN PRN for PAIN LEVEL 4 TO 6, #20 TAB 05/14/22 Docusate Sodium (Colace) 100 Mg Capsule, 100 MG PO BID, #30 CAP 05/14/22 Past Medical History Past Medical History: Other Additional Past Medical Hx: HX OF HERNIATED DISCS Surgical History: Hysterectomy, Cholecystectomy, Other Surgical History Other: TUBAL LIGATION; SIMULATORS PLACED TO BACK RN Note Reviewed/Agreed w/PFSH: Yes Review of System Dictation Constitutional: Negative for fever,chills, and weight loss Eyes: Negative for injury, pain,redness, and discharge ENT: Negative for injury,pain or swelling Cardiovascular: Negative for chest pain, palpitations, and edema Respiratory: Negative for shortness of breath, cough, and wheezing, Abdomen/GI: Negative for abdominal pain, nausea, vomiting, diarrhea, and constipation Back: Negative for injury and pain : Negative for injury, bleeding and discharge MS/Extremity: Positive for low back pain Skin: Negative for rash, and discoloration Neuro: Negative for headache, weakness, numbness, tingling, and seizure Psych: Negative for suicide ideation, homicidal ideation, and hallucinations Initial Vital Sign VS Vital Signs Date Time Temp Pulse Resp B/P (MAP) Pulse Ox O2 Delivery O2 Flow Rate FiO2 02/15/25 19:12 98.6 78 20 126/79 98 Room Air 02/15/25 19:36 0 21 Physical Exam Dictation Vital Signs reviewed General Appearance: Alert, oriented x 3, no acute distress, well developed, nourished. Head and Face: non-traumatic. Eyes: PERRL, pink conjunctivas, eyelid no trauma, anterior chamber with arcus senilis. Ears: Pinnas intact and no signs of trauma or erythema ear canals clear and no discharge TM no erythema Nose: No discharge, no bleeding. Oropharynx: Mouth normal, tongue pink. pharynx clear,no erythema, tonsils no exudates, no abscesses noted, mucous membrane moist Neck: Supple, non-tender, no thyromegaly, no masses, no JVD, no bruits Breast:Deferred Chest:No tenderness, no crepitus, no paradoxical movement, no retractions Lungs:Clear, well-ventilated, symmetric, no rales, no wheezing, no rhonchi, no stridor, good breath sounds bilaterally Heart: Regular rate, regular rhythm, no murmur, no gallops Vascular: no peripheral edema, dorsalis pulses 3+ bilaterally Abdomen: Soft, positive bowel sounds, nondistended, no guarding, nontender, no rebound, no masses no hepatomegaly, no splenomegaly, no Ram's sign, no hernias. Rectal: Deferred Genital: Deferred Neurological: Normal speech, motor function intact, sensory function intact Musculoskeletal: Neck nontender, full range of motion,full range of motion, tenderness to mid lower back, right and left buttocks Extremities: nontender, full range of motion Skin: Color pink, dry, no turgor, no rash, no lacerations, no abrasions, no contusions. Lymphatic: Deferred Results (Laboratory/Radiology) Laboratory/Radiology REASON: pain ORDERING PHYSICIAN: JORGE BABCOCK [employer] PROCEDURE: LUMB 2 3VW - LUMBAR SPINE 2-3VWS EXAM: CR Lumbar Spine, 3 View. CLINICAL HISTORY: pain COMPARISON: None provided. FINDINGS: BONES: No acute fracture or aggressive appearing osseous lesion. ALIGNMENT: Alignment is within normal limits. No significant scoliosis. DISCS / DEGENERATIVE CHANGES: The disc spaces are preserved. SOFT TISSUES: The soft tissues are unremarkable. IMPRESSION: No acute lumbar spine abnormality evident. /[place] Labs Reviewed?: Yes ED Course ED Course Orders Procedure Category Date Status Time Lumbar Spine 2-3vws RAD 02/15/25 Resulted 19:32 Orphenadrine Citrate PHA 02/15/25 Complete (Norflex) 20:00 Triamcinolone Acet PHA 02/15/25 Complete 40mg/Ml 1ml (Kenalog 20:00 Ketorolac 60mg/2ml PHA 02/15/25 Complete (Toradol 60mg/2ml) 20:00 Lidocaine (Lidocaine PHA 02/15/25 Complete Patch 4%) 21:30 Acetaminophen 500mg PHA 02/15/25 Complete Tab (Tylenol 500mg T 22:30 Current Medications Medications (Trade) Dose Ordered Sig/Diego Route PRN Reason Start Time Stop Time Status Last Admin Dose Admin Acetaminophen (TYLenol 500MG TAB) 1,000 mg ONCE ONCE PO 02/15/25 22:30 02/15/25 22:32 DC 02/15/25 22:41 Ketorolac Tromethamine (toRADol 60MG/ 2ML) 60 mg ONCE ONCE IM 02/15/25 20:00 02/15/25 20:01 DC 02/15/25 20:21 Lidocaine (Lidocaine Patch 4%) 1 each ONCE ONCE TP 02/15/25 21:30 02/15/25 21:31 DC 02/15/25 21:31 Orphenadrine Citrate (Norflex) 60 mg ONCE ONCE IM 02/15/25 20:00 02/15/25 20:01 DC 02/15/25 20:20 Triamcinolone Acetonide (Kenalog 40) 40 mg ONCE ONCE IM 02/15/25 20:00 02/15/25 20:01 DC 02/15/25 20:21 Vital Signs Date Time Temp Pulse Resp B/P (MAP) Pulse Ox O2 Delivery O2 Flow Rate FiO2 02/15/25 22:42 98.6 74 20 128/74 98 Room Air* 0 21 02/15/25 19:36 98.6 78 20 126/79 98 Room Air* 0 21 02/15/25 19:12 98.6 78 20 126/79 98 Room Air Medical Decision Making MDM The patient is a 44-year-old female with a history of herniated disc and stimulators, cholecystectomy, hysterectomy who presents to the emergency department with complaints of lower back pain onset 3:00 p.m.. Patient denies any trauma but reports she thinks she might have turn wrong. Reports pain radiates down her left buttocks. Patient denies any urinary or fecal incontinence. Denies any numbness to lower extremities. X-ray showed no acute fractures. Patient received multiple pain medications and reports improving in pain. Patient will be referred back to Dr.Betancourt smith for follow up. On physical exam patient is in no acute distress, neurovascularly intact, no urinary or fecal incontinence, no numbness. ambulatory. Differential diagnosis: Lumbar strain, lumbar fracture, sciatic nerve pain Need for hospitalization: Patient does not meet criteria for hospitalization. There are no social concerns with this patient. DX & DISP Disposition: Discharge Departure Impression: Primary Impression: Low back strain Additional Impression: Low back pain Condition: Stable Scripts Meloxicam (Meloxicam) 15 Mg Tablet 1 TAB PO DAILY for 30 Days, #30 TAB 0 Refills Prov: JORGE BABCOCK 02/15/25 Lidocaine (Lidocaine Pain Relief) 4 % Adh..patch 1 PATCH TP DAILY for 10 Days, #10 PATCH 0 Refills Prov: JORGE BABCOCK 02/15/25 Cyclobenzaprine HCl (Flexeril) 10 Mg Tab 10 MG PO TID for muscle sstiffness, #14 TAB 0 Refills Prov: JORGE BABCOCK [facility] 02/15/25 Additional Instructions: Please follow up with your primary doctor in 1-2 days. Please follow up with Dr. Rodriguez If anything worsens or you develop incontinence or numbness to lower extremities please return to ER. FOLLOW-UP WITH PRIMARY CARE PROVIDER IN 1 TO 2 DAYS. TAKE MEDICATIONS DIRECT ED HERE IN THE EMERGENCY ROOM. OKAY TO CONTINUE HOME MEDICATIONS UNLESS OTHERWISE DISCUSSED DURING YOUR VISIT IN THE EMERGENCY ROOM TODAY. RETURN TO YOUR NEAREST EMERGENCY ROOM IF SYMPTOMS WORSEN OR IF THERE IS NO IMPROVEMENT. CALL 911 IF YOU NEED IMMEDIATE ASSISTANCE. TAKE TYLENOL [id number] NEEDED AND IF NO CONTRAINDICATIONS ARE PRESENT. INCREASE ORAL HYDRATION. A WOUND CULTURE OR URINE CULTURE WAS ORDERED HERE IN THE EMERGENCY ROOM DEPARTMENT PLEASE FOLLOW-UP WITH PRIMARY CARE PROVIDER AND ADVISE THEM TO GET REPEAT PORTS FROM OUR FACILITY. IF YOU HAD ANY MARE WRAP/SPLINTS THAT WERE APPLIED HERE, PLEASE DO NOT REMOVE THEM UNTIL YOU SEE YOUR PRIMARY CARE OR SPECIALTY. Referrals: SELF,REFERRAL (PCP) TOM COBIAN MD Time of Disposition: 22:51 I have reviewed the case, and I agree with, Diagnosis and Plan MILLIE BABCOCKJESUS LUTHER Feb 15, 2025 20:00
[2025-02-15] MEDS: ORPHENADRINE 60MG/2ML IM ONE (20:20)
[2025-02-15] MEDS: TRIAMCINOLONE ACETONIDE 40 MG/ML 1ML VIAL IM ONE (20:21)
--- NOTE | 2025-02-15 20:56 | HMCIMG ---
EXAM: CR Lumbar Spine, 3 View. CLINICAL HISTORY: pain COMPARISON: None provided. FINDINGS: BONES: No acute fracture or aggressive appearing osseous lesion. ALIGNMENT: Alignment is within normal limits. No significant scoliosis. DISCS / DEGENERATIVE CHANGES: The disc spaces are preserved. SOFT TISSUES: The soft tissues are unremarkable. IMPRESSION: No acute lumbar spine abnormality evident. /[place]
[2025-02-15] MEDS: LIDOCAINE 4% ADH..PATCH TP ONE (21:31)
[2025-02-15 22:42] VITALS: BP 128/74; PULSE 74; RESP 20; TEMP 98.6; O2SAT 98
[2025-02-15] MEDS ORDERED: LIDO1ADH71 TP (22:54)
[2025-02-15] MEDS ORDERED: CYCL10TA16 PO (22:54)
[2025-02-15] MEDS ORDERED: MELO-108 PO (22:54)
== END 2025-02-15 22:59 | disposition home or self-care (01) ==
LOC: EDH 19:08
DX: S39.012A Strain of muscle, fascia and tendon of lower back, initial encounter (principal); Z90.710 Acquired absence of both cervix and uterus; Z90.49 Acquired absence of other specified parts of digestive tract; Z88.5 Allergy status to narcotic agent; Z79.1 Long term (current) use of non-steroidal anti-inflammatories (NSAID); Z79.899 Other long term (current) drug therapy; X58.XXXA Exposure to other specified factors, initial encounter; Y93.89 Activity, other specified; Y92.89 Other specified places as the place of occurrence of the external cause; Y99.8 Other external cause status
CPT/HCPCS: 99284; 72100; 96372 ×3; J1885; J3301; J2360